=== PATIENT | female | born 1995 | race African-American/Black ===

== ENCOUNTER 2019-07-19 13:56 | Emergency (ER) | payer MEDICAID ==
[2019-07-19 14:06] VITALS: BP 132/67
--- NOTE | 2019-07-19 14:22 | ED Physician Documentation ---
PD HPI HEENT - Stated complaint Stated Complaint: SORE THROAT - Chief complaint Chief Complaint: Heent - History obtained from History obtained from: Patient - History of Present Illness Timing - onset: How many weeks ago (1) Timing - duration: Weeks (1) Timing - details: Gradual onset, Still present Location: Throat. No: Sinuses, Nose Worsens: Swalllowing Associated symptoms: Fever, Swollen nodes, Other (sore throat) Similar symptoms before: Diagnosis (recurrent strep tonsillitis over the past couple years.) Review of Systems Constitutional: reports: Fever Nose: denies: Rhinorrhea / runny nose, Congestion Throat: reports: Sore throat Respiratory: denies: Cough GI: denies: Vomiting, Diarrhea Skin: denies: Rash Neurologic: denies: Headache PD PAST MEDICAL HISTORY - Past Medical History Past Medical History: Yes Cardiovascular: None Respiratory: None Endocrine/Autoimmune: None HEENT: Other (recurrent tonsillitis) - Present Medications Home Medications: Ambulatory Orders Medication Instructions Recorded Confirmed Cephalexin [Keflex] 500 mg PO TID #21 capsule 07/19/19 dexAMETHasone [Decadron] 4 mg PO DAILY #5 tablet 07/19/19 - Allergies Allergies/Adverse Reactions: Allergies Allergy/AdvReac Type Severity Reaction Status Date / Time No Known Drug Allergies Allergy Verified 07/19/19 14:06 PD ED PE NORMAL - Vitals Vital signs reviewed: Yes - General General: Alert and oriented X 3, No acute distress, Well developed/nourished - HEENT HEENT: No: Pharynx benign (enlarged and red/exudative tonsils, with slight muffling of voice. No peritonsillar swelling/deviation. Anterior adenopathy noted. ) - Neck Neck: Supple, no meningeal sign - Cardiac Cardiac: RRR, No murmur - Respiratory Respiratory: Clear bilaterally - Abdomen Abdomen: Normal bowel sounds, Soft, Non tender, No organomegaly - Derm Derm: Normal color, Warm and dry, No rash Results - Vitals Vitals: Vital Signs - 24 hr 07/19/19 14:02 Temperature 36.5 C Heart Rate 99 Respiratory 18 Rate Blood Pressure 132/67 H O2 Saturation 100 Oxygen O2 Source Room air - Labs Labs: Laboratory Tests 07/19/19 14:25 Group A Strep Rapid POSITIVE H PD MEDICAL DECISION MAKING - ED course Complexity details: considered differential (appearsance c/w strep tonsillitis by [facility] 4/4. Hina, d/w patient Departure - Departure Disposition: 01 Home, Self Care Clinical Impression: Exudative tonsillitis Condition: Stable Record reviewed to determine appropriate education?: Yes Instructions: ED Strep Pharyngitis Poss Follow-Up: [facility] [Provider Group] Prescriptions: Cephalexin [Keflex] 500 mg PO TID #21 capsule dexAMETHasone [Decadron] 4 mg PO DAILY #5 tablet Comments: Stay well-hydrated. Tylenol or ibuprofen as needed for fevers and pains. Use cephalexin as directed for the infection. Decadron steroid for inflammation to decrease the swelling all faster. I would anticipate improvement over the next several days and resolution by within a week. Recheck if not improved in that timeframes. Since you have had recurrent episodes of this in the past, you could consider following up with the director of early childhood education to discuss whether tonsil removal is appropriate or not. Discharge Date/Time: 07/19/19 14:49
[2019-07-19] MEDS ORDERED: cephALEXin 250 MG CAPSULE PO STA (14:37)
[2019-07-19] MEDS ORDERED: DEXAMETHASONE 10 MG/ML VIAL PO STA (14:37)
[2019-07-19] MEDS ORDERED: CHERRY SYRUP 10 ML UDC PO ONE (14:37)
[2019-07-19] MEDS ORDERED: ACETAMINOPHEN 325 MG TABLET PO STA (14:37)
== END 2019-07-19 14:49 | disposition home or self-care (01) ==
LOC: ED 13:56
DX: J03.90 Acute tonsillitis, unspecified (principal)
CPT/HCPCS: 87430; 99283; A9270